=== PATIENT | male | born 1980 | race Caucasian/White ===

== ENCOUNTER 2017-04-21 20:28 | Emergency (ER) | payer OTHER, SELFPAY ==
[2017-04-21 20:29] VITALS: BP 153/104; PULSE 90; RESP 20; TEMP 36.7; O2SAT 98; BMI 35.4
--- NOTE | 2017-04-21 21:06 | EKG12_ITS ---
Test Reason : HTN Blood Pressure : / mmHG Vent. Rate : 082 BPM Atrial Rate : 082 BPM P-R Int : 186 ms QRS Dur : 094 ms QT Int : 362 ms P-R-T Axes : 035 -11 004 degrees QTc Int : 422 ms Normal sinus rhythm Normal ECG Confirmed by CIARAN SINGLETARY MD ([id number]), editor magazine ALANNAH HUSSEIN ([id number]) on 04/26/2017 2:51:16 PM Referred By: DR KELSEY Confirmed By:CIARAN SINGLETARY MD
--- NOTE | 2017-04-21 21:07 | ED.VISSUMM ---
- ER Visit Summary Date of Service: 04/21/17 Chief Complaint: Elevated blood pressure History of Present Illness: The patient is a 36 M presents for concerns of elevated blood pressure. States normal blood pressures 120s over 80s. Today he had a nosebleed right side that was controlled. He states his chronic tinnitus, however states it has been acting up more today. He felt his blood pressure is elevated. Also concerned due to having intermittent bilateral upper chest pains that would last 5 minutes. States with twinge. There is no dyspnea, nausea, or diaphoresis. States father had 2 stents unclear of any heart attacks. He had a stress test 4 years ago. No PE risk factors. Remote tobacco history. Has not seen his PCP for the past 18 months. States has never been told his blood pressure is elevated. No headache or visual changes. No nausea or vomiting. Currently denies any symptoms. Physical Examination: Vitals: Blood pressure 153/104, temp 98, pulse 90, respiration 20 General: Alert and oriented ?3, no acute distress HEENT: Normocephalic, atraumatic. Moist mucosa membranes. There is abrasion right turbinate with no active bleeding Neck: supple, nontender. Cardiovascular: Regular rate and rhythm, no murmurs Respiratory: Normal breath sounds, symmetric, no distress Abdomen: Soft, nontender, nondistended Extremities: Nontender, no edema, pulses intact ?4 Neuro: no focal neurological deficits. Test Results: EKG: Normal sinus rhythm heart rate of 82, no ST changes, T-wave inversion in leads III. Troponin negative. Chest x-ray negative. Emergency Department Course and Treatment: Patient currently asymptomatic. Elevated blood pressure, recheck was 142/95. Plan atypical chest pains intermittent, discussed cardiac workup for reassurance. Return negative. Heart score equals 1. MARYURI equals 0. Patient reassured. Follow-up PCP for reevaluation. Treatment Plan: [] Disposition: Discharge Impression: 1. Atypical chest pain 2. Elevated blood pressure This note was generated with [employer] dictation software. It may contain incorrect words, spelling, and punctuation that were not noted in review of the chart prior to signing ED Disposition - Plan for ED Patient: Disposition: Home or Assisted Living Chief Complaint: Hypertension Diagnosis: Atypical chest pain, Elevated blood pressure reading Instructions: ED Hypertension Poss, ED Chest Pain Atypical Unkn Cause Referrals: Dc Hermosillo DO [Primary Care Provider] - 3-5 Days
[2017-04-21 21:09] VITALS: O2SAT 94
--- NOTE | 2017-04-21 21:25 | RAD_ITS ---
STUDY: X-RAY CHEST REASON FOR EXAM: Male, 36 years old. HIGH BLOOD PRESSURE TECHNIQUE: Frontal and lateral views of the chest. COMPARISON: November 14 2012 FINDINGS: There is an elevated right hemidiaphragm. The lungs are clear and expanded. There is no demonstrated pleural abnormality. Normal size heart. Normal mediastinum and lisha. Normal visualized pulmonary arteries. Normal visualized aortic arch and descending thoracic aorta. Normal visualized thoracic spine. Normal visualized ribs, clavicles, and shoulders. There is no demonstrated abnormality of the visualized soft tissue structures of the upper abdomen. RAD/Chest PA and Lateral IMPRESSION: Normal x-ray examination of the chest. Electronically Signed: Fernando Chavez MD at 21:40 EST , Service support ,
[2017-04-21 21:32] LABS: Absolute Lymphocyte Count 2.87 X10^3/ul (0.83-4.51); Absolute Neutrophil Count 4.8 X10^3/uL (2.0-7.7); Basophil# 0.04 X10^3/uL; Basophil% 0.5 % (0-1); Eosinophil# 0.17 X10^3/uL; Hematocrit 40.6 % (40-54); Hemoglobin 14.6 g/dl (13.0-16.5); Lymphocyte # 2.87 X10^3/ul (4.0); Lymphocyte % 33.9 % (19-41); Mean Corpuscular Hgb 31.1 pg (27.0-32.0); Mean Corpuscular Volume 86.6 fL (80-94); Mean Platelet Vol. 9.5 fl (6.2-12.0); Monocyte# 0.56 X10^3/uL; Monocyte% 6.6 % (0-10); Neutrophil # 4.81 X10^3/uL (2.7-7.7); Neutrophil % 56.8 % (47-70); Platelet Count 225 K/mm3 (150-450); RBC Distribution Width CV 12.2 % (11.6-14.6); RBC Distribution Width SD 38.1 fl (35.1-43.9); Red Blood Count 4.69 M/mm3 (4.6-6.2); White Blood Count 8.5 K/mm3 (4.4-11.0)
[2017-04-21 21:34] LABS: POSITIVE COUNT NO; POSITIVE DIFFERENTIAL NO; POSITIVE MORPHOLOGY NO
[2017-04-21 21:42] LABS: Anion Gap 7 (5-15); BUN 15 mg/dL (7-18); BUN/Creat Ratio 16.3 RATIO (10-20); Calcium,Total 8.6 mg/dL (8.5-10.1); Chloride 106 mmol/L (98-107); Creatinine, Serum 0.92 mg/dL (0.70-1.30); EST Glomerular Filtration Rate 98 mL/min (>60); Est Glom Filt Rate - Afr Amer 119 mL/min (>60); Estimated Creatinine Clearance 120.66 ml/min; Glucose 108 mg/dL (74-106); Potassium 3.4 mmol/L (3.5-5.1); Sodium Level 140 mmol/L (136-145)
[2017-04-21 22:26] VITALS: BP 132/85; PULSE 73; RESP 14; O2SAT 98
--- NOTE | 2017-04-21 22:27 | ED.RN ---
PT VERBALIZES UNDERSTANDING OF D/C INSTRUCTIONS AFTER BEING EDUCATED BY THIS RN. PT IV D/C AND COVERED WITH 2X2 GAUZE DRESSING. PT AMBULATORY HOME BY SELF.
== END 2017-04-21 22:28 | disposition home or self-care (01) ==
PROVIDERS: Emergency Provider Emergency Medicine; Family Provider Family Medicine; PCP Family Medicine
DX: R03.0 Elevated blood-pressure reading, without diagnosis of hypertension (principal); R07.89 Other chest pain; Z72.0 Tobacco use
CPT/HCPCS: 71046; 80048; 84484; 85025; 93005; 99284

== ENCOUNTER → 2017-04-27 09:15 | Outpatient (CLI) | payer OTHER, SELFPAY ==
[2017-04-27 10:34] LABS: Cholesterol 215 mg/dL (200); Glucose 97 mg/dL (74-106); High Density Lipoprotein 32 mg/dL; Thyroid Stim Hormone (TSH) 2.39 uIU/mL (0.358-3.74); Triglycerides 181 mg/dL; Very Low Density Lipoprotein 36 mg/dL (5-40)
== END ==
PROVIDERS: Family Provider Family Medicine; PCP Family Medicine; Visit Provider Internal Medicine
DX: E78.5 Hyperlipidemia, unspecified (principal); F41.1 Generalized anxiety disorder; R03.0 Elevated blood-pressure reading, without diagnosis of hypertension; R73.9 Hyperglycemia, unspecified
CPT/HCPCS: 36415; 80061; 82947; 84439; 84443

== ENCOUNTER → 2017-05-28 09:15 | Outpatient (CLI) | payer OTHER, SELFPAY ==
--- NOTE | 2017-05-28 09:18 | US_ITS ---
STUDY: ABDOMINAL ULTRASOUND - RIGHT UPPER QUADRANT REASON FOR VISIT: Male, 36 years old. Right upper quadrant pain TECHNIQUE: Ultrasound evaluation of the right upper quadrant was performed with real-time and static luong-scale imaging. TECHNICAL QUALITY: Limited. Examination limited by bowel gas. COMPARISON: None. FINDINGS: Liver: The liver measures 16.7 cm. There is increased echogenicity consistent with fatty infiltration. The bile ducts are within normal limits. There is hepatic color flow. The direction of portal flow is hepatopetal. There is no demonstrated mass lesion. Gallbladder: Normal distended gallbladder. The gallbladder wall measures 3 mm. There is a negative sonographic Key's sign. There is no pericholecystic fluid. There are no gallstones. Incidental note is made of a phrygian cap. Common Bile Duct (C.B.D.): The common bile duct measures 4 mm. Pancreas: There is nonvisualization of the pancreas. Right Kidney: Normal size of the right kidney. The right kidney measures 12.5 x 5.5 x 6.6 cm. Normal renal cortex. The right cortex measures 1.5 cm. There is no demonstrated renal mass or cyst. There is no right hydronephrosis. US/Gallbladder IMPRESSION: Diffuse fatty infiltration of liver, no discrete lesion No sonographic evidence of acute gallbladder disease, there is a phrygian cap noted in the gallbladder. Pancreas not visualized Electronically Signed: Jose Cruz Soliman MD at 11:45 EDT , Service support ,
== END ==
PROVIDERS: Family Provider Family Medicine; PCP Family Medicine; Visit Provider Family Medicine
DX: K76.0 Fatty (change of) liver, not elsewhere classified (principal); R10.9 Unspecified abdominal pain
CPT/HCPCS: 76705

== ENCOUNTER → 2019-09-11 08:52 | Outpatient (CLI) | payer OTHER, SELFPAY ==
[2019-09-11 08:23] VITALS: BMI 33.9
--- NOTE | 2019-09-11 09:15 | RAD_ITS ---
STUDY: X-RAY - LEFT SHOULDER REASON FOR EXAM: Male, 39 years old. CHRONIC LEFT SHOULDER PAIN, NO KNOWN INJURY TECHNIQUE: 4 view(s) of the shoulder. COMPARISON: None. FINDINGS: Normal glenohumeral articulation. Normal acromioclavicular joint. Normal acromion. Normal humeral head and visualized proximal humerus. The soft tissue structures are unremarkable. Normal visualized pulmonary apex. RAD/Shoulder min 2 Views IMPRESSION: Normal x-ray examination of the shoulder. Electronically Signed: Jose Cruz Soliman MD at 9:36 EDT , Service support ,
--- NOTE | 2019-09-11 09:16 | EKG12_ITS ---
Test Reason : BASELINE Blood Pressure : / mmHG Vent. Rate : 061 BPM Atrial Rate : 061 BPM P-R Int : 170 ms QRS Dur : 088 ms QT Int : 400 ms P-R-T Axes : 026 003 003 degrees QTc Int : 402 ms Normal sinus rhythm Inferior infarct , age undetermined , cannot be excluded Abnormal ECG Confirmed by BRANDI FRANZ, RIYA ([id number]), newspaper or periodical editor DYLLAN DOLL ([id number]) on 09/12/2019 8:52:04 AM Referred By: Glynn Rios Confirmed By:RIYA PAZ MD
[2019-09-11 12:41] LABS: Absolute Neutrophil Count 4.3 X10^3/uL (2.0-7.7); Basophil# 0.04 X10^3/uL; Basophil% 0.5 % (0-1); Eosinophil# 0.23 X10^3/uL; Hematocrit 46.7 % (40-54); Hemoglobin 15.5 g/dL (13.0-16.5); Lymphocyte % 33.7 % (19-41); Mean Corp Hgb Conc 33.2 g/dL (32-36); Mean Corpuscular Hgb 30.5 pg (27.0-32.0); Mean Corpuscular Volume 91.7 fL (80-94); Mean Platelet Vol. 9.8 fl (6.2-12.0); Monocyte# 0.54 X10^3/uL; NRBC Flagged by Analyzer 0 % (0-5); Neutrophil # 4.26 X10^3/uL (2.7-7.7); Neutrophil % 55.2 % (47-70); Platelet Count 260 K/mm3 (150-450); RBC Distribution Width CV 12.3 % (11.6-14.6); RBC Distribution Width SD 40.5 fl (35.1-43.9); Red Blood Count 5.09 M/mm3 (4.6-6.2); White Blood Count 7.7 K/mm3 (4.4-11.0)
[2019-09-11 12:52] LABS: ALB/GLOB Ratio 1.1 RATIO (0.9-2.4); AST(SGOT) 20 U/L (15-37); Alanine Aminotransfer ALT/SGPT 42 U/L (16-61); Alkaline Phosphatase 74 U/L (45-117); Anion Gap 5 (5-15); BUN 16 mg/dL (7-18); BUN/Creat Ratio 15.2 RATIO (10-20); Chloride 108 mmol/L (98-107); Cholesterol 190 mg/dL (200); Creatinine, Serum 1.05 mg/dL (0.70-1.30); EST Glomerular Filtration Rate 83 mL/min (>60); Est Glom Filt Rate - Afr Amer 101 mL/min (>60); Globulin 3.7 g/dL (2.2-4.2); Glucose 99 mg/dL (74-106); High Density Lipoprotein 31 mg/dL; Potassium 4.8 mmol/L (3.5-5.1); Protein, Total 7.7 g/dL (6.4-8.2); Sodium Level 140 mmol/L (136-145); Thyroid Stim Hormone (TSH) 3.38 uIU/mL (0.358-3.74); Triglycerides 197 mg/dL; Very Low Density Lipoprotein 39 mg/dL (5-40)
== END ==
PROVIDERS: PCP Family Medicine; Referring Provider Nurse Practitioner Family; Visit Provider Nurse Practitioner Family
DX: E78.5 Hyperlipidemia, unspecified (principal); R03.0 Elevated blood-pressure reading, without diagnosis of hypertension; F41.1 Generalized anxiety disorder; M25.512 Pain in left shoulder; R07.9 Chest pain, unspecified
CPT/HCPCS: 36415; 73030; 80053; 80061; 84443; 85025; 93005

== ENCOUNTER 2019-09-18 07:00 | Outpatient (RCR) | payer OTHER, SELFPAY ==
[2019-09-11 08:23] VITALS: BMI 33.9
--- NOTE | 2019-09-18 07:57 | HP.PTEVAL ---
Patient's Visit Information MICKY CAMPO is a 39 year old M referred to Physical Therapy by ANN Schmidt with a diagnosis of Left Shoulder Pain. Date of Evaluation: 09/18/19 Physical Therapist: Yudith Wood DPT - Visit Plan Frequency: 1x/Week Duration: 1 Week Plan: HEP- will follow up in a few weeks- educated on impingment - Subjective Patient reports he has had a lot of pain in his left shoulder- had x-rays which were negative and he sent him to PT. 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 The ache is constant and he can't sleep on the left side and heavy lifting shows this is his weaker side. Worst: 3/10 Agg: heavy lifting, rolling over on it Eases: pushing on it Best: 0/10 Describes the pain as dull and achy but can get a random sharp/shooting pain. Pain is located in the shoulder blade and into the bicipital groove. Chiropractor currently- massage and adjustments. Does radiate to the elbow. N/T in the fingers only when he wakes upsometimes. No issues with certified nurse aide or finger dexterity. No change in MIKE, blurred vision or dizziness. But does have neck pain intermittently. Right hand dominate. 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 Workout: not currently- Goal: be more comfortable. Sleep: not disturbed unless he rolls over onto it. PMHx/Meds: no changes since scanned in chart. - Objective Posture: FH, RS, increased kyphosis- can correct but does not maintain. Gait: no deviation noted- good arm swing but little trunk rotation. Palpation: tender along bicipital groove and supraspinatus. ROM: WNL in all planes of the cervical and UE from shoulder to fingers. Strength: Cervical: 5/5 isometrics, Shoulder: 5/5 throughout gross testing, Elbow: 5/5, Wrist: 5/5, Geoint Analyst: equal. Scap: fair- does have mild winging and poor scapular mechanics. Special Test: Impingment: Alberto Miller: positive, Neer: positive, Flores Lift off: negative, Speeds: negative, Empty Can: negative. Sensation: WNL - Goals Goal 1:: Patient will be I with HEP and progression Goal Time Frame: 4-6 Weeks Goal 2:: Patient will maintain proper posture t/o tx session to demo increased scap s/s Goal Time Frame: 4-6 Weeks - Rehabilitation Potential Physical Therapy Diagnosis: Patient presents with hypmobility- he has decreased scapular s/s leading to poor posture and impingement of the shoulder with pain Rehabilitation Potential: Good - Anticipated Interventions Thank you for the opportunity to evaluate your patient. For Medicare and Medicare HMO plans, please review the plan of care and approve it. It will need to be FAXED BACK to us at [phone] for Medicare purposes. For Medicare only, by signing this I certify the plan of care. Please let me know if there are questions or concerns regarding this plan of care. Physician Signature: Date:
--- NOTE | 2019-11-19 14:38 | HP.PT.NRP ---
MICKY Hugo CAMPO was seen in my office for initial evaluation on 09/18/19. The following Plan of Care was established for this patient: Initial Frequency: 1x/Week Initial Duration: 1 Week This patient was last seen in our office . Pertinent comments regarding their Physical therapy will appear below: Patient is I with HEP- appropriate for dc At this point I will be discontinuing this patient from physical therapy. I would be happy to see this patient again in the future if found appropriate by the physician. Thank you! SHAKIR CisseT
== END 2019-09-18 19:00 | disposition home or self-care (01) ==
LOC: PT 07:00
PROVIDERS: PCP Family Medicine; Referring Provider Nurse Practitioner Family; Visit Provider Nurse Practitioner Family
DX: M25.512 Pain in left shoulder (principal)
CPT/HCPCS: 97110; 97161

== ENCOUNTER → 2019-09-25 09:44 | Outpatient (CLI) | payer OTHER, SELFPAY ==
[2019-09-11 08:23] VITALS: BMI 33.9
--- NOTE | 2019-09-25 13:31 | STRESSREP_ITS ---
Stress Test Report Date: 09-25-2019 Procedure: Exercise tolerance test Indications: Chest pain Consent: Per the patient Procedure: The patient exercised on a Luis Daniel protocol for 8 minutes completing Stage II and 2 minutes of Stage III achieving a peak heart rate of 162 bpm (90 % predicted maximal heart rate) with a peak blood pressure 162/80 mmHg and a peak MET capacity of approximately 9 mET's. The baseline ECG demonstrated normal sinus rhythm. The peak exercise ECG demonstrated no obvious ECG changes. There were no cardiac dysrhythmias pretest, during exercise, or recovery. The functional capacity was considered good. The patient had no complaint of chest discomfort during exercise or recovery. The examination was discontinued secondary to dyspnea and throat tightness . Impression: 1. Technically adequate (percent predicted maximal heart rate greater than 85%) exercise tolerance test 2. Peak exercise ECG with no obvious ECG changes 3. There were no cardiac dysrhythmias during exercise or recovery This note was generated with [employer] software. It may contain incorrect words, spelling, and punctuation that were not noted in checking the note before signing.
== END ==
PROVIDERS: PCP Family Medicine; Referring Provider Nurse Practitioner Family; Visit Provider Nurse Practitioner Family
DX: R07.89 Other chest pain (principal); R94.31 Abnormal electrocardiogram [ECG] [EKG]
CPT/HCPCS: 93017

== ENCOUNTER → 2022-04-29 | Outpatient (CLI) | payer OTHER, SELFPAY ==
[2022-04-29 16:27] LABS: Absolute Lymphocyte Count 3.16 X10^3/uL (0.83-4.51); Basophil# 0.07 X10^3/uL; Basophil% 0.8 % (0-1); Eosinophils% 2.2 % (0-5); Hematocrit 45.7 % (40-54); Hemoglobin 15.5 g/dL (13.0-16.5); Lymphocyte # 3.16 X10^3/ul (0.83-4.51); Lymphocyte % 34.8 % (19-41); Mean Corp Hgb Conc 33.9 g/dL (32-36); Mean Corpuscular Hgb 30.4 pg (27.0-32.0); Mean Corpuscular Volume 89.6 fL (80-94); Mean Platelet Vol. 9.9 fl (6.2-12.0); Monocyte# 0.63 X10^3/uL; Monocyte% 6.9 % (0-10); NRBC Flagged by Analyzer 0 % (0-5); Neutrophil # 4.99 X10^3/uL (2.7-7.7); Neutrophil % 54.9 % (47-70); Platelet Count 283 K/mm3 (150-450); RBC Distribution Width CV 12.3 % (11.6-14.6); RBC Distribution Width SD 40.6 fl (35.1-43.9); White Blood Count 9.1 K/mm3 (4.4-11.0)
[2022-04-29 16:40] LABS: Anion Gap 8 (5-15); BUN 19 mg/dL (7-18); BUN/Creat Ratio 19.8 RATIO (10-20); Chloride 106 mmol/L (98-107); Cholesterol 214 mg/dL (200); Creatinine, Serum 0.96 mg/dL (0.70-1.30); EST Glomerular Filtration Rate 91 mL/min (>60); Est Glom Filt Rate - Afr Amer 110 mL/min (>60); Glucose 85 mg/dL (74-106); High Density Lipoprotein 31 mg/dL; Potassium 3.6 mmol/L (3.5-5.1); Sodium Level 140 mmol/L (136-145); Triglycerides 277 mg/dL; Very Low Density Lipoprotein 55 mg/dL (5-40)
== END | disposition home or self-care (01) ==
LOC: BIMLAB 14:38
PROVIDERS: PCP Family Medicine; Referring Provider Family Medicine; Visit Provider Family Medicine
DX: R53.83 Other fatigue (principal); E78.5 Hyperlipidemia, unspecified
CPT/HCPCS: 36415; 80048; 80061; 85025

== ENCOUNTER → 2022-05-06 | Outpatient (CLI) | payer OTHER, SELFPAY | END | disposition home or self-care (01) | LOC: SL 11:10 | PROVIDERS: PCP Family Medicine; Visit Provider Family Medicine | DX: G47.30 Sleep apnea, unspecified (principal) | CPT/HCPCS: 95806 ==

== ENCOUNTER 2022-06-25 09:01 | Day surgery (SDC) | payer OTHER, SELFPAY ==
[2022-06-25] VITALS (8 sets, daily range): BP systolic 116–130; BP diastolic 68–90; PULSE 65–87; RESP 16–20; TEMP 36.1–36.9; O2SAT 92–98; BMI 38.5
[2022-06-25] MEDS: Lactated Ringers 1,000 ML 15 ML IV (09:41)
--- NOTE | 2022-06-25 10:00 | EGD_PTH ---
PATIENT: MICKY CAMPO LOC: EN U#:[id number] AGE/SX: 41/M ROOM: RE06/25/[address]: Dr. Keegan Posada MD : 1980 BED: DIS: 06/25/2022 SPEC #: [id number] RECD: 06/25/22 11:08 STATUS: DAYANARA OLIVA #: [id number] SOPHIE: 06/25/22 10:[address]: Keegan Posada DEPT: SURGICAL PATHOLOGY RECD BY: Denise Triana ENTERED: 06/25/22 12:36 SP TYPE: EGD BIOPSY OT DR: Dr. Dc Hermosillo, DO Tissues: Pylorus Procedures: Special Stain Group II Surgery Specimen Level IV Alcian Blue/PAS (control) HEADER OPERATION: EGD (MAC), dilation and biopsy PRE-OP DIAGNOSIS: Dysphagia TISSUE SUBMITTED: Pyloric biopsy MICROSCOPIC DIAGNOSIS Pyloric biopsy: Mild gastritis. See microscopic description and comment. SJ:elke 06/28/2022 COMMENT The results of immunohistochemistry for Helicobacter pylori will be reported separately ([id number]). Alcian blue/PAS stain with matched control is used in the evaluation of the specimen. MICROSCOPIC DESCRIPTION Slides are reviewed. The specimen shows fragments of gastric mucosa with chronic inflammatory cell infiltrates in the lamina propria consisting of lymphocytes and plasma cells, consistent with chronic gastritis. Focal intestinal metaplasia (goblet cell metaplasia) is also noted. GROSS DESCRIPTION Received in fixative is one container labeled with the patient's name and designated pyloric biopsy. The specimen consists of two irregular fragments of light holbrook soft tissue that in aggregate measure 0.6 x 0.3 x 0.1 cm. The specimen is totally submitted in one cassette. / DIVINA:elke 06/25/2022 TC:3 CPT: 96201, 87056
--- NOTE | 2022-06-25 10:00 | IMM_PTH ---
PATIENT: MICKY CAMPO LOC: EN U#:[id number] AGE/SX: 41/M ROOM: RE06/25/[address]: Dr. Keegan Posada MD : 1980 BED: DIS: 06/25/2022 SPEC #: [id number] RECD: 06/25/22 13:37 STATUS: DAYANARA REAnuj #: [id number] SOPHIE: 06/25/22 10:[address]: Keegan Posada DEPT: IMMUNOHISTOCHEMISTRY RECD BY: Ni Johnson ENTERED: 06/25/22 13:38 SP TYPE: IMMUNO OTHR DR: Dr. Dc Hermosillo, DO Tissues: Pylorus Procedures: H Pylori (initial) PHYSICIAN & INSTITUTION [place] [id number] SPECIMEN INFORMATION: Tissue Source: Pyloric biopsy Clinical Info: Dysphagia Specimen Number: [id number] CPT code: 94223 METHODOLOGY: Deparaffinized sections of prefer/formalin-fixed tissue or PAP/DQ stained slides are incubated with monoclonal/polyclonal antibodies/oligonucleotide probes. Localization is made via biotin free immunoperoxidase method. Appropriate controls are performed and reacted as expected. Results on target cell population are indicated in the following table: RESULTS: ANTIBODY / CLONE RESULT H Pylori (polyclonal) negative These tests were developed and their performance characteristics determined by [facility]. They may not have been cleared or approved by the U.S. Food and Drug Administration. The FDA has determined that such clearance or approval is not necessary. The above immunohistochemical/dualISH markers are ordered and reviewed by the Pathologist. INTERPRETATION: Pyloric biopsy: Negative for Helicobacter pylori organisms. AM:elke 06/28/2022
--- NOTE | 2022-06-25 10:34 | PCM.HP.BLA ---
History and Physical Date of Admission: 06/25/22 Intake Vital Signs ? 06/01/2307:25 Height 6 ft Weight: 290 lb 4 oz BMI 39.3 BP 125/79 H Blood Pressure Location Rt brachial Position Sitting Respiration 18 Pulse 84 Pulse Source Monitor Temp 97.4 F L Temp Source Temporal Pulse Oximetry (%) 96 Oxygen Delivery Method room air Intake Visit Reasons:?Dysphagia Chief Complaint: dysphagia Allergies No Known Allergies Allergy (Verified 04/29/22 13:58) PFSH Family History? Grandfather Alcoholism Liver disease ?? ? Maternal grandfatherMother Cervical cancer Thyroid disorderGrandfather Heart disease ?? ? Paternal grandfather Myocardial infarctionFather High cholesterol HypertensionGrandmother Respiratory disease ?? ? Maternal grandmotherOther Cancer Social History? Smoking Status:? Former smoker alcohol intake:? current alcohol intake frequency: a few times a month Alcohol type: beer, wine and hard liquor what type of physical activity do you participate in:? weight training frequency:? 1-2 times per week duration:? 45-60 minutes/day HPI HPI HPI: Patient is a 41-year-old male here for dysphagia.? Patient reports that he is having difficulty swallowing especially if he is not drinking at the same time.? He says that it feels like it is getting stuck in his mid chest.? He is also having epigastric pain. ROS General General: Yes fatigue; No weight change, appetite, colon cancer, breast cancer or weakness HEENT HEENT: Yes difficulty swallowing; No eye injury, eye surgery, swollen glands or hoarseness Endo Endocrine: No thyroid disease, diabetes mellitus, thyroid cancer, Hair loss, heat intolerance or cold intolerance Skin Skin: No rash or changing moles Breast Breast: No left breast lump, right breast lump, nipple discharge, breast pain, abnormal mammogram, abnormal US or breast enlargement Musc Musculoskeletal: No back problems, arthritis, rheumatoid arthritis, gout or joint pain Cardio Cardiovascular: No murmur, pacemaker, heart disease, atrial fibrillation, high blood pressure, heart attack, heart stent, palpitations, shortness of breat with exertion or chest pain Psych Psychiatric: Yes anxiety; No depression or hearing voices Resp Respiratory: No shortness of breath, Yes sleep apnea, No cough, No COPD, No asthma, No emphysema and No wheezing Gastro Gastrointestinal: Yes abdominal pain, No nausea or vomiting, No diarrhea, No constipation, No blood in stool, No acid reflux, No hemorrhoids, No ulcers, No gallbladder problem and No black,tarry stools José Manuel Hematologic: No blood thinners, No blood disorders, No bleeding, No anemia and No blood clots Neuro Neurologic: No system reviewed and no additional complaints, except as documented, No as per HPI, No abnormal gait, No abnormal hearing, No abnormal movements, No abnormal speech, No behavioral changes, No burning sensations, No confusion, No convulsions, No disequilibrium, No dizziness, No localized weakness, No frequent falls, No headache(s), No lack of coordination, No loss of vision, No memory loss, No numbness, No other visual disturbances, No radicular pain, No restless legs, No sensory deficit, No syncope, No tingling, No tremor(s), No weakness and No other Exam Const General: cooperative Orientation: alert and oriented x3 [facility] Head: normal to inspection Neck Neck: normal visual inspection and full ROM Chest Chest palpation & inspection: normal inspection of the chest Resp Effort & Inspection: normal respiratory effort Auscultation: clear to auscultation bilaterally Cardio Rate: regular rate Rhythm: regular rhythm GI Inspection: non-distended Palpation: soft and nontender Skin General: no rashes or lesions noted Neuro General: patient alert and patient oriented x3 Extrem General: full ROM Psych Appearance: grossly normal Mental Status: mental status grossly normal Assessment and Plan Assessment and Plan (1) Swallowing difficulty: ?Status:?Acute ?Qualifiers: ?Dysphagia type:?esophageal phase? Qualified Code(s):?R13.19 - Other dysphagia ?Plan: Patient is having dysphagia.? I discussed starting him on a PPI until I am able to scope him.? I will perform an EGD with possible dilation.? I discussed the scope as well as the increased risk with possible dilation.? Patient understands the risks and is willing to proceed. I explained endoscopy in detail to the patient.? I explained the risks including but not limited to stroke or heart attack with anesthesia, perforation of the GI tract, bleeding, infection.? I explained that any of these could necessitate further emergency surgery.? The patient understands and all questions were answered sufficiently.? The patient wishes to proceed with procedure. Keegan Posada MD Pager: [facility] [address] [place] [address] [address] [place] [address] Office: I have examined the patient and the H&P has been reviewed. There are no clinical changes since date of exam.
--- NOTE | 2022-06-25 10:39 | OP.EGD_ITS ---
Patient Name: Dago Alejo Procedure Date: 06/25/2022 10:14 AM Date of : 1980 Age: 41 Procedure: Upper GI endoscopy Indications: Epigastric abdominal pain, Dysphagia Providers: Keegan Posada MD Referring MD: Keegan Posaad MD Medicines: Monitored Anesthesia Care Patient Profile: This is a 41 year old male. Refer to note in patient chart for documentation of history and physical. Complications: No immediate complications. Estimated blood loss: Minimal. Procedure: Pre-Anesthesia Assessment: - Prior to the procedure, a History and Physical was performed, and patient medications and allergies were reviewed. The patient's tolerance of previous anesthesia was also reviewed. The risks and benefits of the procedure and the sedation options and risks were discussed with the patient. All questions were answered, and informed consent was obtained. Prior Anticoagulants: The patient has taken no previous anticoagulant or antiplatelet agents. After reviewing the risks and benefits, the patient was deemed in satisfactory condition to undergo the procedure. After obtaining informed consent, the endoscope was passed under direct vision. Throughout the procedure, the patient's blood pressure, pulse, and oxygen saturations were monitored continuously. The gastroscope was introduced through the mouth, and advanced to the third part of duodenum. The upper GI endoscopy was accomplished without difficulty. The patient tolerated the procedure well. Scope In: 10:23:22 AM Scope Out: 10:30:24 AM Total Procedure Duration Time 0 hours 7 minutes 2 seconds Findings: One benign-appearing, intrinsic stenosis was found at the gastroesophageal junction. This stenosis was mildly severe and. The stenosis was traversed. A TTS dilator was passed through the scope. Dilation with an 18-19-20 mm balloon dilator was performed to 20 mm. The dilation site was examined following endoscope reinsertion and showed no change. A single medium pedunculated and sessile polyp with no bleeding and no stigmata of recent bleeding was found at the pylorus. Biopsies were taken with a cold forceps for histology. The examined duodenum was normal. Impression: - Benign-appearing esophageal stenosis. Dilated. - A single gastric polyp. Biopsied. - Normal examined duodenum. Recommendation: - Discharge patient to home. - Resume previous diet. - Continue present medications. - Await pathology results. Procedure Code(s): --- Professional --- 61867, Esophagogastroduodenoscopy, flexible, transoral; with transendoscopic balloon dilation of esophagus (less than 30 mm diameter) Diagnosis Code(s): --- Professional --- K22.2, Esophageal obstruction K31.7, Polyp of stomach and duodenum R10.13, Epigastric pain R13.10, Dysphagia, unspecified CPT copyright 2017 [employer]. All rights reserved. The codes documented in this report are preliminary and upon pharmacy buyer review may be revised to meet current compliance requirements. Keegan Posada MD 06/25/2022 10:38:11 AM This report has been signed electronically. Number of Addenda: 0 Note Initiated On: 06/25/2022 10:14 AM
--- NOTE | 2022-06-25 10:39 | OP.CCLET_ITS ---
06/25/2022 Dc Hermosillo Re : Upper GI endoscopy procedure for [place] Dear Dr. Hermosillo This procedure was performed on Saturday, June 25, 2022. My impressions and recommendations are as follows: Impressions : - Benign-appearing esophageal stenosis. Dilated. - A single gastric polyp. Biopsied. - Normal examined duodenum. Recommendations : - Discharge patient to home. - Resume previous diet. - Continue present medications. - Await pathology results. My findings are described in the full procedure note, which is enclosed. If I can be of further assistance, please feel free to contact me at Doctor phone number(s): , Work: . Sincerely, Keegan Posada MD 06/25/2022 10:38:11 AM This report has been signed electronically.
== END 2022-06-25 11:21 | disposition home or self-care (01) ==
LOC: EN 09:02 → AC 09:04
PROVIDERS: PCP Family Medicine; Referring Provider Surgery; Visit Provider Surgery
PROC: 0DJ08ZZ Inspection of Upper Intestinal Tract, Via Natural or Artificial Opening Endoscopic (ICD-10-PCS; CPT 43235; principal; 2022-06-25 09:55)
DX: K21.9 Gastro-esophageal reflux disease without esophagitis (principal); K22.2 Esophageal obstruction; R13.10 Dysphagia, unspecified; K31.7 Polyp of stomach and duodenum; G47.30 Sleep apnea, unspecified; Z79.899 Other long term (current) drug therapy; Z87.891 Personal history of nicotine dependence; K29.70 Gastritis, unspecified, without bleeding
CPT/HCPCS: 43239; 43249; 88305; 88313; 88342; J7120; J2405